=== PATIENT | male | born 1955 | race Caucasian/White ===

== ENCOUNTER 2017-05-25 01:54 | Emergency (ER) | payer OTHER ==
[~2017-05-25] VITALS: Ht 177.8 cm; Wt 95.2 kg
[2017-05-25] MEDS ORDERED: EFFEXOR XR75 MG PO (03:37)
[2017-05-25] MEDS ORDERED: EFFEXOR XR150 MG PO (03:37)
[2017-05-25] MEDS ORDERED: ALL DAY ALLERGY10 M1 PO (03:38)
[2017-05-25] MEDS ORDERED: NAPROXEN500 MG PO (03:38)
[2017-05-25] MEDS ORDERED: OMEPRAZOLE MAGN20 MG PO (03:39)
[2017-05-25] MEDS ORDERED: TERAZOSIN HCL10 MG PO (03:40)
[2017-05-25] MEDS ORDERED: SYMBICORT 16010.2 GM INH (03:40)
[2017-05-25] MEDS ORDERED: VENTOLIN HFA18 GM INH (03:41)
--- NOTE | 2017-05-25 19:00 | EKG ---
[facility] [address] [facility] [place] [address] Signed Normal sinus rhythm Left bundle branch block Abnormal ECG No previous ECGs available Confirmed by LARISA GARCIA MD ([id number]) on 05/25/2017 7:00:21 PM Electronically Signed By: LARISA GARCIA MD 05/25/17 1900 PATIENT NAME: ABIODUN OWENS BUDDY Electrocardiogram DATE OF : 57 PHYSICIAN: LARISA GARCIA MD REPORT #: [id number] REPORT IS CONFIDENTIAL AND NOT TO BE RELEASED WITHOUT AUTHORIZATION
== END 2017-05-25 06:09 | disposition home or self-care (01) ==
LOC: ED 01:54
DX: R10.13 Epigastric pain (principal); J45.909 Unspecified asthma, uncomplicated; Z87.891 Personal history of nicotine dependence; Z79.899 Other long term (current) drug therapy
CPT/HCPCS: 71010; 80053; 84484; 85025; 93005; 93010; 99283

== ENCOUNTER 2017-05-28 12:05 | Emergency (ER) | payer OTHER ==
[~2017-05-28] VITALS: Ht 177.8 cm; Wt 95.2 kg
[~2017-05-28 12:05] MED LIST: ALL DAY ALLERGY10 M1 PO; EFFEXOR XR150 MG PO; EFFEXOR XR75 MG PO; NAPROXEN500 MG PO; OMEPRAZOLE MAGN20 MG PO; SYMBICORT 16010.2 GM INH; TERAZOSIN HCL10 MG PO; VENTOLIN HFA18 GM INH
== END 2017-05-28 14:05 | disposition home or self-care (01) ==
LOC: ED 12:05
DX: K80.20 Calculus of gallbladder without cholecystitis without obstruction (principal); J45.909 Unspecified asthma, uncomplicated; Z79.899 Other long term (current) drug therapy
CPT/HCPCS: 76705; 99284

== ENCOUNTER 2017-05-30 10:40 | Observation (INO) | payer OTHER ==
[~2017-05-30] VITALS: Ht 177.8 cm; Wt 95.2 kg
--- NOTE | 2017-05-30 14:17 | NUR ---
PT LYING IN BED WITH SHACKLES IN PLACE. 2 OFFICERS AT BEDSIDE. PT TOLERATED IV INSERTION. NO COMPLAINTS AT THIS TIME. TENDER ABD TO PALPATION. ACTIVE BOWEL TONES.
--- NOTE | 2017-05-30 17:11 | NUR ---
ROSS X1. DIRECT ADMIT. ESTRELLITA MORALES PLANNED FOR TODAY. D5LR @ 125. LFA 20G IV. EOCI PATIENT. A&O. APPROPRIATE.
--- NOTE | 2017-05-30 17:11 | EKG ---
[facility] [address] [facility] [place] [address] Signed Sinus tachycardia Left bundle branch block T wave abnormality, consider inferior ischemia Abnormal ECG When compared with ECG of 25-MAY-2017 04:15, T wave inversion more evident in Inferior leads Confirmed by DUARTE MALHOTRA MD ([id number]) on 05/30/2017 5:11:45 PM Electronically Signed By: DUARTE MALHOTRA MD 05/30/17 1711 PATIENT NAME: ABIODUN OWENS BUDDY Electrocardiogram DATE OF : 57 PHYSICIAN: DUARTE MALHOTRA MD REPORT #: [id number] REPORT IS CONFIDENTIAL AND NOT TO BE RELEASED WITHOUT AUTHORIZATION
--- NOTE | 2017-05-30 19:40 | NUR ---
REPORT RECEIVED FROM CHARGE NURSE. PT STILL IN SURGERY AT THIS TIME.
--- NOTE | 2017-05-30 19:43 | NUR ---
05/30/171942 Tamela Beck PT LIFTS HEAD AND SURGICAL FLEIPE IS REMOVED. OXYGEN SATURATION REMAINS 99% ON 6L VIA MASK. OXYGEN REMOVED @ THIS TIME. PT REPORTS "JUST TIRED" AND CONTINUES TO DENY PAIN.
--- NOTE | 2017-05-30 20:15 | NUR ---
PT RESTURNED TO THE FLOOR VIA STRETCHER. PT INITIALLY DENIES PAIN, NAUSEA, OTHER NEEDS AT THIS TIME. ASSESSMENT COMPLETED. GAUZE AND TAPE PRESENT TO LAP SITES, C/D/I. PHONG DRAIN DRAINING SEROSANGUINOUS DRAINAGE. BT'S ACTIVE. PT REPORTS TENDERNESS TO ABDOMEN THAT INCREASES WITH PALPATION. PT RATES PAIN 8/10. 0.5 MG OF DILAUDID ADMINISTERED. PT REPORTS PAIN DECREASED TO 5/10. STAETS THAT GOAL IS 3/10. PT EDUCATED REGARDING CALL LIGHT USE, WHEN TO USE. PT STATES UNDERSTANDING. DENIES OTHER NEEDS AT THIS TIME. CALL LIGHT IN PT'S LAP. RESTRAINTS PRESENT. GUARDS X2 PRESENT AT BEDSIDE.
--- NOTE | 2017-05-30 22:30 | NUR ---
PT LYING IN BED, STATES THAT PAIN IS WELL CONTROLLED. WOULD LIKE TO TRY EATING CRACKERS. 2 PACKAGES CRACKERS PROVIDED, COLA, AND WATER. PT DENIES OTHER NEEDS AT THIS TIME. CALL LIGHT WITHIN REACH.
--- NOTE | 2017-05-30 23:47 | NUR ---
PT RESTING IN BED WITH EYES CLOSED. RESPIRATIONS EVEN AND UNLABORED. PT APPEARS TO BE SLEEPING. WAKES EASILY TO LIGHT TOUCH. PT RATES PAIN 4/10, STATES THAT THIS NUMBER IS COMFORTABLE, THAT HE "KNOWS THERE WILL BE PAIN". PT DENIES NAUSEA AFTER EATING CRACKERS AND DRINKING WATER/COLA. PT DENIES OTHER NEEDS AT THIS TIME. CALL LIGHT WITHIN REACH. GUARDS REMAIN PRESENT AT BEDSIDE.
--- NOTE | 2017-05-31 01:04 | NUR ---
PT LYING IN BED WITH EYES CLOSED. RESPIRATIONS EVEN AND UNLABORED. PT APPEARS TO BE SLEEPING. PT WAKES EASILY FOR POST OP VITALS. PT REPORTS PAIN INCREASED TO 6/10, REQUESTS PAIN MEDICATION. PT DENIES NAUSEA AFTER EATING. EDUCATION PROVIDED REGARDING IV VERSUS ORAL MEDICATION, PT STATES THAT HE WOULD LIKE TO TAKE ORAL MEDICATION. PT PROVIDED WITH ADDITIONAL CRACKERS TO TAKE PILLS. PT DENIES OTHER NEEDS AT THIS TIME. CALL LIGHT WITHIN REACH. MARLIN PRESENT AT BEDSIDE.
--- NOTE | 2017-05-31 02:02 | NUR ---
PT ASSESSMENT COMPLETE. PT CONTINUES TO RATE PAIN AT 6/10, STATES THAT PAIN PILLS HAVE NOT BEEN EFFECTIVE YET. DRESSINGS TO ABD X3 C/D/I. PT CONTINUES TO REPORT ABD TENDERNESS, STATES THAT IT INCREASES WHEN HE TAKES A DEEP BREATH. PT IS USING IS APPROPRIATELY; IS PRESENT AT BEDSIDE. ICE PACK PRESENT TO ABD. PT DENIES NEEDS AT THIS TIME. CALL LIGHT WITHINR EACH.
--- NOTE | 2017-05-31 04:11 | NUR ---
pt lying awake in bed. states that pain is beginning to increase again. rates 8/10. States that the po pain medication "did not help too much". Prn iv dilaudid, 0.5 mg administered. Pt using IS, denies nausea. Reports that if he goes too long without taking pepcid, he typically develops heartburn. Denies GI upset currently. Denies other needs at this time. Call light within reach. Gaurds remain at bedside.
--- NOTE | 2017-05-31 04:42 | NUR ---
PT AWAKE MOST OF THE NIGHT. PAIN RANGING FROM 3/10 TO 8/10. IV DILAUDID X 2, NORCO X 1. PT STATES NORCO NOT EFFECTIVE. GAUZE AND TAPE OVER LAP SITES/PHONG SITE X3; C/D/I. BT'S ACTIVE. ABDOMEN TENDER. HIDA SCAN SCHEDULED FOR 1500 PT NEEDS TO BE NPO @ 0700, NO OPIODS AFTER 0900. PT TOLERATING REGULAR DIET. D5LR @ 100. DENIES N/V.
--- NOTE | 2017-05-31 05:49 | NUR ---
PT LYING IN BED AWAKE. GUARDS REMAIN AT BEDSIDE X 2. PT REPORTS PAIN DECREASED TO 3/10. ASSESSMENT COMPLETED. ABD REMAINS FIRM, TENDER. DRESSING X 3 C/D/I. ICE PACK PRESENT TO ABD. BT'S ACTIVE. PT DENIES NEEDS AT THIS TIME. CALL LIGHT WITHIN REACH.
--- NOTE | 2017-05-31 09:03 | NUR ---
PT IN BED, MARLIN AT BEDSIDE. PT'S LAP SITES COVERED WITH GAUZE AND TAPE, C/D/I. PT C/O 01/31 ABDOMINAL PAIN, GAVE DILAUDID 1 MG IV PRN. HELD SCHEDULED PO AM MEDICATIONS, PT IS NPO FOR HIDA SCAN THIS AFTERNOON. PT REPORTED PASSING GAS. BOWEL TONES ACTIVE. ABDOMEN MODERATELY DISTENDED, TENDER TO PALPATION. BILATERAL LOWER LOBES OF LUNGS DIMINISHED, ENCOURAGED DEEP BREATH AND COUGH, WELL I.S. USE. PT AGREED TO DO BOTH. I.S. ON BEDSIDE TABLE. PT DENIED FURTHER NEEDS.
[2017-05-31] MEDS ORDERED: KETOROLAC30 MG/1 M1 IM (09:31)
[2017-05-31] MEDS ORDERED: BENTYL10 MG PO (09:32)
[2017-05-31] MEDS ORDERED: CIPRO500 MG PO (09:33)
[2017-05-31] MEDS ORDERED: NORCO 5-325 TA1 EACH PO (09:34)
[2017-05-31] MEDS ORDERED: ACETAMINOPHEN650 M1 PO (09:36)
--- NOTE | 2017-05-31 09:40 | NUR ---
MED REC COMPLETE
--- NOTE | 2017-05-31 10:12 | NUR ---
PT SITTING UP IN BED, GAURDS AT BEDSIDE. PT REPORTED PAIN TO ABDOMEN 3/10, STATED THIS IS A TOLERABLE LEVEL OF PAIN. DENIED NEEDS. PROVIDED PT WITH LEMON GLYCERIN SWABS.
--- NOTE | 2017-05-31 10:50 | NUR ---
PT AMBULATED IN HALLS WITH GAURDS AT SIDE, TOLERATED WELL.
--- NOTE | 2017-05-31 11:47 | OR ---
[facility] [address] [place], [place] [address] Signed DATE OF OPERATION: 05/30/2017 PREOPERATIVE DIAGNOSES: Acute cholecystitis. Cholelithiasis. POSTOPERATIVE DIAGNOSES: Acute severe cholecystitis. Cholelithiasis. PROCEDURES: Laparoscopic cholecystectomy without intraoperative cholangiogram. Subhepatic drain placement. ESTIMATED BLOOD LOSS: None. FINDINGS: Abiodun had severe cholecystitis with the surrounding omentum and transverse mesocolon adherent to the gallbladder wall. His gallbladder was full of numerous 1-2 mm yellow cholesterol gallstones. We did pass intraoperative cholangiocatheter down the cystic duct and yet we could not get any saline to pass. We did milk the cystic duct with our [place] dissector, but no stones were expressed in a retrograde fashion. We reinserted the cholangiocatheter into the cystic duct with the same result. Consequently, we abandoned the intraoperative cholangiogram and secured it with a PDS Endoloop and placed a drain alongside the cystic duct stump into the procedure. INDICATIONS: Abiodun is a 62-year-old gentleman from our [facility]. Probably for a couple of weeks now, he has had dyspepsia with vomiting. His labs had been unremarkable. He went to the ER twice. He went back to the [facility] both times. His liver function tests were fine except alkaline phosphatase that was ever so slightly up 63, lipase was negative. His white count was creeping up, it was 8.8 and then 10.4. Neutrophils were 81. He had an ultrasound performed on May 28. He had multiple mobile tiny gallstones. The com m on bile duct was unremarkable. There was a little bit of thickening to the gallbladder wall at 3 mm. There is a tiny lesion in the dome of the left side of the liver about 14 x 9 x 9 mm and probably needs a follow-up at some point. 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 He has been hydrated, given antibiotics and pain control. The antibiotics over the weekend did not seem to make any improvements. I met with Abiodun here in the hospital and I reviewed his above findings. I explained to him the location and function of the gallbladder. We discussed laparoscopic versus open cholecystectomy. We also discussed Electronically Signed By: ELISE MASTERSON MD 05/31/17 1147 PATIENT NAME: ABIODUN OWENS BUDDY OPERATIVE REPORT DATE OF : 57 PHYSICIAN: ELISE MASTERSON MD REPORT #: [id number] REPORT IS CONFIDENTIAL AND NOT TO BE RELEASED WITHOUT AUTHORIZATION [facility] [address] [place], [place] [address] Signed the expected intra- and postop course. There is risk o f surgery including, but not limited to bleeding, infection, scarring, change in contour of the skin, damage to bowel, damage to main bile duct, incisional hernias as well as other unforeseen comorbidities and/or need for additional procedures. In addition, on physical exam, he does have a reducible umbilical hernia about a centimeter or so in diameter. I explained to Abiodun we will place our Brenna trocar through this umbilical hernia and we will close it at the end of the procedure. He had expressed understanding and wished to proceed. PROCEDURE NOTE: Abiodun was taken into our operating room, placed in a supine position under general endotracheal tube anesthesia. He was already on preoperative antibiotics. He was given subcutaneous heparin. SCDs were utilized. He was then prepped and draped in the usual sterile fashion. We placed the Brenna trocar through the umbilical fascial defect. Other trocars were placed in usual positions. After this, we had taken pictures throughout for photo documentation. It took us a minute to bluntly dissect the surrounding fat away from the gallbladder itself. The fat was indurated enough that it formed a tunnel conforming to the wall of the gallbladder. Fortunately, we were able to access the neck of the gallbladder. The entire gallbladder was inflamed along with the triangle of Calot. We carefully worked our way through bluntly and with very careful cautery, and we located the cystic artery, and it was secured with a clip and then divided. We continued the dissection bluntly until we had the cystic duct completely free up to the base of the gallbladder. Again, we placed the intraoperative cholangiocatheter into the cystic duct without any difficulty whatsoever. However, we could not get the saline to flow down the cystic duct. We r e moved the cholangiocatheter and we milked the cystic duct several times and found no evidence of any stones. Once again, we inserted the cholangiocatheter into the cystic duct and once again, the saline would not pass. Consequently, we abandoned our intra operative cholangiogram and we secured our cystic duct stump with a PDS Endoloop and 2 clips were placed on the cystic duct stump to esther its location. After this, we very carefully removed the gallbladder from the gallbladder fossa with the help of the cautery. There was pus actually along the fundus of the gallbladder and along the edge of the liver. Eventually, the gallbladder was free and we placed it into our EndoCatch bag. The right upper quadrant was then irrigated and suctioned out until clear. We p l aced our #7 flat Elieser drain underneath the edge of the liver pass the cystic duct stump and out the right most lateral 5 mm trocar site. This was held in place with interrupted 2-0 nylon suture. We then used our laparoscopic suturing device to pass 0 Laith r yl suture on either side of the fascia of the subxiphoid trocar site and this was tied down to close this fascia primarily. The right upper quadrant had been irrigated and suctioned out until clear. We then carefully brought the very thickened nearly necrotic gallbladder through the umbilical fascial defect. It was opened on the back table where circulating nurse and it was full of very dark brown multiple small 1-2 mm yellow cholesterol stones. The umbilical fascial defect was then closed transversely with a running #1 Prolene suture. Local anesthetic was then injected Electronically Signed By: ELISE MASTERSON MD 05/31/17 1147 PATIENT NAME: ABIODUN OWENS BUDDY OPERATIVE REPORT DATE OF : 57 PHYSICIAN: ELISE MASTERSON MD REPORT #: [id number] REPORT IS CONFIDENTIAL AND NOT TO BE RELEASED WITHOUT AUTHORIZATION [facility] [address] [place] [id number] Signed in all trocar sites. Each trocar site was irrigated and suctioned out until clear. The umbilical skin was held down to the midline fascia with an interrupted 2-0 PDS suture. A 0 Monocryl suture was used to reapproximate the skin and dermis of each trocar site. Dry gauze and tape was then applied to all trocar sites. Abiodun tolerated the procedure quite well. MD KAVON Molina/Roe /[id number] cc: Dr. Ramesh Abraham Electronically Signed By: ELISE MASTERSON MD 05/31/17 1147 PATIENT NAME: ABIODUN OWENSN OPERATIVE REPORT DATE OF : 57 PHYSICIAN: ELISE MASTERSON MD REPORT #: [id number] REPORT IS CONFIDENTIAL AND NOT TO BE RELEASED WITHOUT AUTHORIZATION
--- NOTE | 2017-05-31 11:47 | CONS ---
[facility] [address] [place], [place] [address] Signed DATE OF SERVICE: 05/30/2017 REFERRING PHYSICIAN: Dr. Ramesh Abraham. CHIEF COMPLAINT: Right upper quadrant abdominal pain. HISTORY OF PRESENT ILLNESS: Abiodun is a 62-year-old gentleman from our [facility]. For the last couple of weeks, he has apparently been having trouble with dyspepsia and vomiting and now right upper quadrant abdominal pain. Apparently, the laboratory work was not very impressive. He has been at the emergency room twice. In fact, he came over the weekend. His ultrasound had revealed tiny mobile gallstones and the gallbladder wall was borderline at 3 mm. Common bile duct was unremarkable. There is a question of a tiny lesion over the dome of the left hepatic lobe measuring 14 x 9 x 9 mm, that may need a follow-up ultrasound or MRI. He seemed to be doing fine, so he had been returned back to the residential. He had been given Cipro and Rocephin this weekend, but seemed to continue to have increasing localizing right lower quadrant abdominal pain. I was called by Dr. 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 We therefore made those arrangements and Abiodun has been here today with IV fluids, pain control and follow-up laboratory work. He says he still has pain in the right upper quadrant. PAST MEDICAL HISTORY: Asthma, anxiety, depression, benign prostatic hyperplasia, and gastroesophageal reflux disease. PAST SURGICAL HISTORY: Left inguinal hernia repair. SOCIAL HISTORY: He does not smoke or drink. He is single and has no children. Dr. Ramesh Abraham is his primary care provider at the [facility]. 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 He appears to have dentures. FAMILY HISTORY: No family history of colon cancer or polyps, heart attacks, or strokes. REVIEW OF SYSTEMS: Abiodun had 10 systems reviewed and really nothing new, particularly no metal in his body. ALLERGIES: None. MEDICATIONS: Effexor XR, cetirizine, naproxen, omeprazole, Symbicort, terazosin, and albuterol. PHYSICAL EXAMINATION: Electronically Signed By: ELISE MASTERSON MD 05/31/17 1147 PATIENT NAME: ABIODUN OWENS BUDDY CONSULTATION DATE OF : 57 PHYSICIAN: ELISE MASTERSON MD REPORT #: [id number] REPORT IS CONFIDENTIAL AND NOT TO BE RELEASED WITHOUT AUTHORIZATION [facility] [address] [place], [place] [address] Signed VITAL SIGNS: His blood pressure is 136/81, heart rate 107, respiratory rate 16, temperature is 98.7. He is 96% on room air. He is 5 feet 10 inches and 180 pounds, which is 95 kg. GENERAL: Abiodun is a 62-year-old gentleman, who is lying supine in his hospital bed. He has 2 officers in the room. He does not appear systemically ill or toxic. He is not jaundiced. LUNGS: Clear to auscultation bilaterally. HEART: Tachycardic. ABDOMEN: Soft and flat, but he is tender in the right upper quadrant. LABORATORY DATA: His initial white blood cell count was 8.8, it is now 10.4; neutrophils are 81. His creatinine is 0.9. His alkaline phosphatase was 63, is now 63. Total bilirubin was 0.7, is now 0.7. His AST was 13, is now 16. The ALT is 13 and is now 13. The alkaline phosphatase was 63, is now 64. Initial lipase was 12, it is 4 today. RADIOGRAPHIC STUDIES: I reviewed a chest x-ray from May 25, it was unremarkable in the emergency room and an ultrasound on 05/28/2017 from the emergency room showed the tiny mobile gallstones with a 3 mm gallbladder wall and a tiny 14 x 9 x 9 mm lesion over the dome of the left lobe of the liver and then the common bile duct was unremarkable. ASSESSMENT AND PLAN: Abiodun is a 62-year-old gentleman with cholelithiasis and cholecystitis. He has certainly not made any progress on conservative therapy including his antibiotics. At this point, we are going to be taking him to the operating room. I reviewed within the location of function of the gallbladder. We discussed laparoscopic versus open cholecystectomy. He understands expected interim postop course. There is a risk of surgery including, but not limited to bleeding, infection, scarring, change in contour of the skin, damage to bowel, damage to main bile duct, incisional hernias and other unforeseen comorbidities. In addition, bAiodun has a small umbilical hernia. I think we will just use that for the Brenna trocar and we will close that primarily when we are done. He has expressed understanding and agrees above plan. MD KAVON Molina/Roe /[id number] Electronically Signed By: ELISE MASTERSON MD 05/31/17 1147 PATIENT NAME: ABIODUN OWENS BUDDY CONSULTATION DATE OF : 57 PHYSICIAN: ELISE MASTERSON MD REPORT #: [id number] REPORT IS CONFIDENTIAL AND NOT TO BE RELEASED WITHOUT AUTHORIZATION [address] [place], [place] [address] Signed cc: Dr. Ramesh Abraham Electronically Signed By: ELISE MASTERSON MD 05/31/17 1147 PATIENT NAME: ABIODUN OWENS CONSULTATION DATE OF : 57 PHYSICIAN: ELISE MASTERSON MD REPORT #: [id number] REPORT IS CONFIDENTIAL AND NOT TO BE RELEASED WITHOUT AUTHORIZATION
--- NOTE | 2017-05-31 13:12 | NUR ---
PT WALKING IN HALLS, GUARDS IN TOW. HE SEEMED PLEASED THAT I SAID HELLO, AND JOKED THAT HE WAS NOT SETTING ANY LAND SPEED RECORDS. WILL CONTIUNUE TO FOLPAM
--- NOTE | 2017-05-31 13:13 | NUR ---
PT IN BED, AWAKE, ALERT. GAURDS AT BEDSIDE. PT RATED PAIN 1/10 TO ABDOMEN. DRESSINGS TO ABDOMEN SCOPE SITES WNL, C/D/I. PHONG DRAIN HAS SMALL AMOUNT OF SEROSANGUAINOUS DRAINAGE.
--- NOTE | 2017-05-31 14:04 | NUR ---
PATIENT WAS 84% ON RA WHILE IN BED. PATIENT SAT UP TOOK DEEP BREATHS OXYGEN LEVEL UP TO 88%. PUT 1L NC OF O2 ON. PATIENT UP TO 94% SITTING UP IN CHAIR.
--- NOTE | 2017-05-31 14:24 | NUR ---
RADHA ROQUE NOTIFIED THIS RN THAT PT WAS LAYING IN BED, AND WHEN SHE CHECKED VS, PT'S OXYGEN SATURATION LEVEL WAS IN LOW 80s. ALSO NOTIFIED THIS RN THAT PT'S HR WAS IN 130s WHEN PT GOT UP AND AMBULATED SHORT DISTANCE. RADHA Burger CNA NOTFIED THIS RN THAT SHE PLACED PT ON 1L O2 VIA NC, AND PT'S OXYGEN SATURATION LEVEL INCREASED TO 94%. THIS RN WENT DIRECTLY TO PT'S ROOM TO ASSESS PT, PT SITTING UP IN RECLINER ON 1L O2 USING INSENTIVE SPIROMETER. PT'S OXYGEN LEVEL WAS 94%, HR 93 APICAL. PT DENIED SHORTNESS OF BREATH OR CHEST PAIN. NOTIFIED DR. MASTERSON VIA TELEPHONE OF ABOVE NOTED. DR. MASTERSON INSTRUCTED THIS RN TO HAVE PT UP OUT OF BED, ENCOURAGE HIM TO AMBULATE IN HALLS, AND TO USE INSENTIVE SPIROMETER. ALSO NOTIFIED DR. MASTERSON OF PT'S MOST RECENT TEMP OF 99.5. THIS RN NOTIFIED DR. MASTERSON THAT PT HAD BEEN AMBULATING IN HALLS, HAD BEEN USING INSENTIVE SPIROMETER AT LEAST HOURLY, AND HAD BEEN DEEP BREATHING AND COUGHING.
--- NOTE | 2017-05-31 16:54 | NUR ---
NOTIFIED DR. MASTERSON THAT HIDA SCAN RESULTS WERE AVAILABLE, NEGATIVE. RECIEVED TORB TO CHNANGE DIET TO ADVANCE DIET TOLERATED.
--- NOTE | 2017-05-31 17:56 | NUR ---
PT SITTING UP IN RECLINER, OXYGEN ON AT 1L VIA NC, SAT 95%. PT DRINKING WATER, APPLE JUICE, AND EATING JELLO. TOLERATING WELL, DENIES NAUSEA.
--- NOTE | 2017-05-31 18:54 | NUR ---
PT HAD LAP ESTRELLITA, HAS PHONG TO RLQ, WHICH DRAINED SMALL AMOUNT OF SEROSANGUAINOUS FLUID THIS SHIFT. PT WAS NPO FOR HIDA SCAN TODAY. HIDA SCAN DONE THIS AFTERNOON, NO SIGNIFICANT FINDINGS, DIET CHANGED TO ADVANCE TOLERATED. PT HAS TOLERATED CLEAR LIQUIDS THUS FAR. TOOK DILAUDID 1 MG IV X 2 DOSES THIS SHIFT, REPORTED GOOD PAIN CONTROL WITH THIS. VOIDIG QUANTITY SUFFICIENT, CONCENTRATED URINE. PT'S OXYGEN SATURATION LEVEL DROPPED TO LOW 80s AT REST THIS AFTERNOON, PT PLACED ON 1L O2 TO MAINTAIN SATS GREATER THAN 90%. OXYGEN SATURATION LEVEL 94% ON 1L.
--- NOTE | 2017-05-31 19:00 | NUR ---
talked to patient about walking in hallway some more tonight. patient up to bathroom. gards in room.
--- NOTE | 2017-05-31 19:10 | NUR ---
BEDSIDE REPORT RECEIVED FROM OFFGOING NURSE. PT LYING IN BED WITH GUARDS PRESENT X2 AT THE BEDSIDE. PT DENIES NEEDS, CALL LIGHT WITHIN REACH.
--- NOTE | 2017-05-31 20:03 | NUR ---
PT SITTING UP IN BED RECEIVING NEB TX. ASSESSMENT PERFORMED. PT RATES PAIN 11/02. DENIES NAUSEA OR SOB. STATES THAT HE IS STARTING TO HAVE HEARTBURN. ABDOMEN REMAINS FIRM AND TENDER. DRESSING X 3 C/D/I. PHONG DRAIN WITH SEROSANG. DRAINANGE PRESENT. GUARDS AT BEDSIDE X2. PT PREPARED FOR WALK, SWITCH TO PORTABLE O2, BATHROBE PROVIDED. PT WALKING WITH GUARDS IN GIRON AT THIS TIME.
--- NOTE | 2017-05-31 22:05 | NUR ---
PT LYING NEARLY FLAT IN BED, COMPLAINTS OF ACID REFLUX. EDUCATION PROVIDED, ENCOURAGED PT TO ELEVATE HEAD OF THE BED, CRACKERS PROVIDED PER PT'S REQUEST. PT REPORTS THAT ACID IS MUCH BETTER, PT UP TO WALK INTO THE BATHROOM INDEPENDENTLY. PT DENIES NEEDS. PT AGREES TO CALL FOR NEEDS.
--- NOTE | 2017-05-31 23:52 | NUR ---
PT RESTING IN BED WITH EYES CLOSED. HOB REMAINS ELEVATED. GUARDS PRESENT AT BEDSIDE X 2. CALL LIGHT WITHIN REACH.
--- NOTE | 2017-06-01 02:52 | NUR ---
PT LYING IN BED, WATCHING TV. PT ASSESSMENT COMPLETE. PT RATES PAIN 5-6/10, REQUESTS PRN PAIN MEDICATION. ABDOMEN REMAINS FIRM AND TENDER. SLIGHT SEROSANGUINOUS DRAINAGE NOTED TO PHONG DRESSING. OTHER SITES REMAIN C/D/I. BT'S HYPOACTIVE. PT DENIES PASSING FLATUS. PT REPORTS PAIN TO LEFT FOREARM, SLIGHT REDNESS NOTED AROUND IV SITE. IV SITE PATENT. PROCUREMENT REPRESENTATIVE EXAMINED IV SITE. PT AGREES TO NEW IV PLACEMENT. PT TOLERATED WELL. 20G IN RIGHT FOREARM, FLUSHED WITH 10ML NS, IV PATENT. CONNECTED TO CONTINUOUS FLUIDS. PT REPORTS THAT PAIN IS DECREASED TO 1-2/10 OVERALL. DENIES OTHER NEEDS AT THIS TIME. CALL LIGHT WITHIN REACH.
--- NOTE | 2017-06-01 04:36 | NUR ---
PT RESTING OFF AND ON THROUGHOUT THE SHIFT. NORCO X 1 FOR PAIN. PT TOLERATING JELLO/CRACKERS. NO REPORTS OF NAUSEA. C/O STOMACH ACID, ENCOURAGE HOB ELEVATED. SEROSANG DRAINAGE TO PHONG DRESSING. LAP SITES C/D/I. BT'S HYPOACTIVE. PT REPORTS PASSING GAS. NEW IV PLACED THIS SHIFT. D5LR @ 100. IND IN ROOM AND AMBULATES IN GIRON WITH GUARDS.
--- NOTE | 2017-06-01 04:40 | NUR ---
UNEVENTFUL NIGHT. PT RESTED WELL. NO EPISODES OF SOB, ITCHING, NAUSEA. O2 @ 1LPM. LUNG SOUNDS CONTINUE TO BE DIM THROUGHOUGH. IV SL. TOLERATING REGULAR DIET. INDPENDENT. VOIDING QS.
--- NOTE | 2017-06-01 07:05 | NUR ---
BEDSIDE HANDOFF REPORT RECEIVED FROM IMPLEMENTATION PROJECT MANAGER RN. PT RESTING IN BED. PT DENIES NEEDS AT THIS TIME.
--- NOTE | 2017-06-01 08:15 | NUR ---
PT RESTING COMFORTABLY IN BED. PT DENIES PAIN. PT ON ROOM AIR, LUNG SOUNDS CLEAR. PT TOLERATING REGULAR DIET, BOWEL TONES ACTIVE, DENIES NAUSEA. PT REPORT OF FLATUS AND SMALL BM TODAY. PT UP INDEPENDENT IN ROOM WITH [employer] OFFICERS. IV ABX INFUSING. PT DENIES NEEDS AT THIS TIME.
--- NOTE | 2017-06-01 09:00 | NUR ---
patient up ambulating in hallway. patient would like to shower at the shelter when he discharged today. no other needs at this time.
--- NOTE | 2017-06-01 10:11 | NUR ---
PATIENT CHANGED GOWN. AMBULATING HALLWAY WITH GUARDS THEN UP TO CHAIR.
--- NOTE | 2017-06-01 11:00 | NUR ---
gave patient an ensure to drink. ordered patient chicken noodle soup for lunch.
--- NOTE | 2017-06-01 13:45 | NUR ---
MD TO BEDSIDE TO EVALUATE PT. PHONG DRAIN REMOVED BY MD. PLAN TO DISCHARGE TO [facility] TODAY. PT DENIES NEEDS AT THIS TIME. VERBAL ORDER TO HOLD FLAGYL INFUSION FOR DISCHARGE.
[2017-06-01] MEDS ORDERED: NORCO 5-325 TA1 EACH PO (13:48)
--- NOTE | 2017-06-04 11:54 | DS ---
[facility] [address] [place], [place] [address] Signed DATE OF DISCHARGE: 06/01/17 FINAL DIAGNOSES Severe cholecystitis with cholelithiasis. A 14 x 9 x 9 mm lesion, dome of left lobe of the liver. PROCEDURES Laparoscopic cholecystectomy without intraoperative cholangiogram. HIDA scan. HISTORY OF PRESENT ILLNESS Abiodun is a 62-year-old gentleman from our [facility]. He has had trouble with dyspepsia and vomiting, the last week or two. He had been to the emergency room twice. His labs were not particularly concerning. He was therefore sent back to the custodial. He did have a chest x-ray that was negative and an ultrasound showed multiple tiny mobile stones within the gallbladder. The gallbladder wall was borderline at 3 mm and the common bile duct was unremarkable. There is a tiny lesion over the left lobe of the liver that probably needs a followup at some point. However, Abiodun was not improving with Cipro and Rocephin, and therefore, I have been asked by Dr. 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 HOSPITAL COURSE Abiodun was admitted as above. One could see, he was starting to get little sick from the gallbladder. I took Abiodun to the operating room later that day and he had severe cholecystitis with cholelithiasis. We were not able to perform his intraoperative cholangiogram and it was abandoned. We did place a drain underneath the liver. He had a little bit of thin serosanguineous fluid out of the drain. We did do a HIDA scan and there was no evidence of any bile duct obstruction or leak. The following day, he had very little thin serosanguineous fluid out the drain, so it was removed. We left him on Rocephin and Flagyl during his hospital stay. He looks and feels much better each day. He is eating well today. He has had several bowel movements and his pain is well controlled. He said his feeling much improved. Given his current situation, we are going to have him discharged back to the custodial. DISCHARGE PLANS AND MEDICATIONS Abiodun is going to be discharged back to the custodial with Leary 5/325, 1 to 2 tablets p.o. q.4-6 hours p.r.n. pain. We will dispense 60 tablets with no refills. He can resume his chronic medications. He is welcome to take diet as tolerated. He can perform his activities of daily living including walking up and down stairs and showering and bathing as needed starting tomorrow. He can remove the gauze dressing from the drain site tomorrow and shower and bathe. He is welcome to use ice as needed. He should not do any heavy pushing, pulling, or lifting over about 20 pounds. I will follow up him in the Electronically Signed By: ELISE MASTERSON MD 06/04/17 1154 PATIENT NAME: ABIODUN OWENS BUDDY DISCHARGE SUMMARY DATE OF : 57 PHYSICIAN: ELISE MASTERSON MD REPORT #: [id number] REPORT IS CONFIDENTIAL AND NOT TO BE RELEASED WITHOUT AUTHORIZATION [address] [address] Signed office in the next few weeks. I have reviewed this with Abiodun, he has expressed understanding and agrees with the above plan. MD KAVON Molina/Roe /[id number] cc: Ramesh Abraham MD Electronically Signed By: ELISE MASTERSON MD 06/04/17 1154 PATIENT NAME: ABIODUN OWENS DISCHARGE SUMMARY DATE OF : 57 PHYSICIAN: ELISE MASTERSON MD REPORT #: [id number] REPORT IS CONFIDENTIAL AND NOT TO BE RELEASED WITHOUT AUTHORIZATION
== END 2017-06-01 14:20 | disposition home or self-care (01) ==
LOC: MS 10:40
PROVIDERS: ADMIT Colon & Rectal Surgery
PROC: 0D9W40Z Drainage of Peritoneum with Drainage Device, Percutaneous Endoscopic Approach (ICD-10-PCS; 2017-05-30)
PROC: 0FT44ZZ Resection of Gallbladder, Percutaneous Endoscopic Approach (ICD-10-PCS; principal; 2017-05-30 18:10)
DX: K80.12 Calculus of gallbladder with acute and chronic cholecystitis without obstruction (principal); J45.909 Unspecified asthma, uncomplicated; F41.9 Anxiety disorder, unspecified; K76.9 Liver disease, unspecified; F32.9 Major depressive disorder, single episode, unspecified; N40.0 Benign prostatic hyperplasia without lower urinary tract symptoms; K21.9 Gastro-esophageal reflux disease without esophagitis; Z79.1 Long term (current) use of non-steroidal anti-inflammatories (NSAID); Z79.51 Long term (current) use of inhaled steroids; Z79.899 Other long term (current) drug therapy
CPT/HCPCS: 00790; 36415; 78226; 80053; 82150; 83690; 83735; 84100; 85025; 93005; 93010; 94640; 94760; 96365; 96366; 96375; A9537; G0378; G0379; J0696; J1170; J1644; J2250; J2370; J2405; J2704; J3010; J7120

== ENCOUNTER 2020-11-14 14:46 | Emergency (ER) | payer OTHER ==
[~2020-11-14] VITALS: Ht 177.8 cm; Wt 93.0 kg
[~2020-11-14 14:46] MED LIST changes: +ACETAMINOPHEN650 M1 PO; +BENTYL10 MG PO; +CIPRO500 MG PO; +KETOROLAC30 MG/1 M1 IM; +NORCO 5-325 TA1 EACH PO
[2020-11-14] MEDS ORDERED: ASMANEX HFA13 GM IH (16:54)
[2020-11-14] MEDS ORDERED: DULOXETINE HCL60 MG PO (16:54)
[2020-11-14] MEDS ORDERED: ALLER-CORT16.9 ML (16:58)
[2020-11-14] MEDS ORDERED: TUDORZA PRESS400 MCG INH (16:59)
[2020-11-14] MEDS ORDERED: THEO-24100 MG PO (16:59)
[2020-11-14] MEDS ORDERED: PREDNISONE20 MG PO (17:27)
[2020-11-14] MEDS ORDERED: VENTOLIN HFA18 GM INH (17:27)
--- NOTE | 2020-11-15 13:34 | EKG ---
[facility] [address] [facility] [place] [address] Signed Sinus tachycardia Left bundle branch block T wave abnormality, consider inferior ischemia Abnormal ECG When compared with ECG of 30-MAY-2017 15:03, T wave inversion no longer evident in Lateral leads Confirmed by DUARTE MALHOTRA MD ([id number]) on 11/15/2020 1:34:44 PM Electronically Signed By: DUARTE MALHOTRA MD 11/15/20 1334 PATIENT NAME: ABIODUN OWENSN Electrocardiogram DATE OF : 57 PHYSICIAN: DUARTE MALHOTRA MD REPORT #: [id number] REPORT IS CONFIDENTIAL AND NOT TO BE RELEASED WITHOUT AUTHORIZATION
== END 2020-11-14 17:45 | disposition home or self-care (01) ==
LOC: ED 14:46
DX: J44.1 Chronic obstructive pulmonary disease with (acute) exacerbation (principal); Z79.899 Other long term (current) drug therapy; Z20.822 Contact with and (suspected) exposure to COVID-19
CPT/HCPCS: 71045; 80053; 83735; 83880; 84484; 85025; 93005; 93010; 94640; 96374; 99285-25; C9803; J2930; U0003

== ENCOUNTER 2020-11-25 08:26 | Emergency (ER) | payer OTHER ==
[~2020-11-25] VITALS: Ht 177.8 cm; Wt 92.5 kg
[~2020-11-25 08:26] MED LIST changes: +ALLER-CORT16.9 ML; +ASMANEX HFA13 GM IH; +DULOXETINE HCL60 MG PO; +PREDNISONE20 MG PO; +THEO-24100 MG PO; +TUDORZA PRESS400 MCG INH
[2020-11-25] MEDS ORDERED: NAPROXEN500 MG PO (08:41)
[2020-11-25] MEDS ORDERED: TUDORZA PRESS400 MCG INH (08:42)
--- OUTSIDE RECORDS SUMMARY | 2020-11-25 11:49 | XMS ---
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 [facility] has no Care Guidelines for this patient. [place] VISIT COUNT (12 MO.) 2 [facility] [place] [facility] TOTAL 2 NOTE: Visits indicate total known visits. 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
[2020-11-25] MEDS ORDERED: PROVENTIL HFA6.7 GM INH (12:37)
[2020-11-25] MEDS ORDERED: PREDNISONE20 MG PO (12:37)
--- NOTE | 2020-11-26 23:50 | EKG ---
[facility] [address] [facility] [place] [address] Signed Sinus tachycardia Left bundle branch block Abnormal ECG When compared with ECG of 25-NOV-2020 08:33, (Unconfirmed) ST elevation has replaced ST depression in Anterior leads Confirmed by LARISA GARCIA MD ([id number]) on 11/26/2020 11:50:43 PM Electronically Signed By: LARISA GARCIA MD 11/26/20 2350 PATIENT NAME: ABIODUN OWENS BUDDY Electrocardiogram DATE OF : 57 PHYSICIAN: LARIAS GARCIA MD REPORT #: [id number] REPORT IS CONFIDENTIAL AND NOT TO BE RELEASED WITHOUT AUTHORIZATION
== END 2020-11-25 12:55 | disposition home or self-care (01) ==
LOC: ED 08:26
DX: J44.1 Chronic obstructive pulmonary disease with (acute) exacerbation (principal); Z20.822 Contact with and (suspected) exposure to COVID-19; Z79.899 Other long term (current) drug therapy
CPT/HCPCS: 36600; 71045; 80053; 82803; 84484; 85025; 93005; 93010; 94640; 94664; 96374; 99285-25; C9803; J2930; U0003

== ENCOUNTER 2021-06-11 23:01 | Emergency (ER) | payer OTHER ==
[~2021-06-11] VITALS: Ht 175.3 cm; Wt 93.0 kg
[~2021-06-11 23:01] MED LIST changes: +PROVENTIL HFA6.7 GM INH
[2021-06-12] MEDS ORDERED: PREDNISONE50 MG PO (02:04)
== END 2021-06-12 02:23 | disposition home or self-care (01) ==
LOC: ED 23:01
DX: J44.1 Chronic obstructive pulmonary disease with (acute) exacerbation (principal); Z20.822 Contact with and (suspected) exposure to COVID-19; Z79.899 Other long term (current) drug therapy
CPT/HCPCS: 71045; 80053; 83735; 84484; 85025; 94644; 99285-25; C9803; J7512; U0003

== ENCOUNTER 2021-12-17 14:59 | Emergency (ER) | payer OTHER ==
[~2021-12-17] VITALS: Ht 175.3 cm; Wt 97.5 kg
[~2021-12-17 14:59] MED LIST changes: +PREDNISONE50 MG PO
[2021-12-17] MEDS ORDERED: LIPITOR10 MG PO (16:06)
[2021-12-17] MEDS ORDERED: OMEPRAZOLE20 M1 PO (16:07)
[2021-12-17] MEDS ORDERED: VENTOLIN HFA18 GM (16:07)
[2021-12-17] MEDS ORDERED: BUDESONIDE0.25 MG/2 INH (16:07)
[2021-12-17] MEDS ORDERED: FLOMAX0.4 MG PO (16:08)
[2021-12-17] MEDS ORDERED: VITAMIN D250 MCG PO (16:09)
== END 2021-12-17 19:05 | disposition home or self-care (01) ==
LOC: ED 14:59
DX: S43.402A Unspecified sprain of left shoulder joint, initial encounter (principal); J44.9 Chronic obstructive pulmonary disease, unspecified; Z79.51 Long term (current) use of inhaled steroids; Z79.899 Other long term (current) drug therapy; W00.0XXA Fall on same level due to ice and snow, initial encounter
CPT/HCPCS: 73030; 73060; 99283-25